=== PATIENT | male | born 1990 | race Caucasian/White ===

== ENCOUNTER 2019-09-16 20:46 | Emergency (ER) | payer MEDICAID ==
[~2019-09-16] VITALS: Ht 182.9 cm; Wt 105.2 kg
[2019-09-16 20:49] VITALS: BP 154/96
--- NOTE | 2019-09-16 20:55 | NUR ---
Pt was ambulatory from Triage to ER rm 19 w/o gait disturbances noted.
[2019-09-16] MEDS ORDERED: KETOROLAC 30 MG/1 ML ONE (21:05)
[2019-09-16] MEDS ORDERED: METHOCARBAMOL 750 MG TABLET ONE (21:05)
--- NOTE | 2019-09-16 21:19 | NUR ---
Pt provided po fluids.
[2019-09-16 21:21] LABS: BASOPHILS # (AUTO) 0.08 x10^3/uL (0-0.1); BASOPHILS % (AUTO) 1 % (0-1); EOSINOPHILS # (AUTO) 0.06 x10^3/uL (0-0.4); EOSINOPHILS % (AUTO) 1 % (1-7); LYMPHOCYTES # (AUTO) 2.23 x10^3/uL (1-3.4); LYMPHOCYTES % (AUTO) 20 % (22-44); MD NO; MEAN CORPUSCULAR HEMOGLOBIN 29.9 pg (27.5-34.5); MEAN CORPUSCULAR HGB CONC 34.1 g/dL (33.2-36.2); MEAN CORPUSCULAR VOLUME 87.7 fL (81-97); MEAN PLATELET VOLUME 7.8 fL (7.4-10.4); MONOCYTES # (AUTO) 1.15 x10^3/uL (0.2-0.8); MONOCYTES % (AUTO) 10 % (2-9); NEUTROPHILS # (AUTO) 7.87 x10^3/uL (1.8-6.8); NEUTROPHILS % (AUTO) 69 % (42-75); PLATELET COUNT 255 x10^3/uL (130-400); RED BLOOD COUNT 5.13 x10^6/uL (4.38-5.82); RED CELL DISTRIBUTION WIDTH 12.9 % (9.4-14.8)
[2019-09-16 21:29] LABS: ALBUMIN 4.2 g/dL (3.4-5.0); ANION GAP 11 mmol/L (5-15); CALCIUM 9.1 mg/dL (8.5-10.1); CHLORIDE 109 mmol/L (98-107); CREATININE 1.13 mg/dL (0.7-1.3)
[2019-09-16] MEDS ORDERED: METHOCARBAMOL 750 MG TABLET PO ONE (21:30)
[2019-09-16] MEDS ORDERED: KETOROLAC 30 MG/1 ML IM ONE (21:30)
[2019-09-16 22:21] LABS: MICROSCOPIC INDICATED
== END 2019-09-16 22:47 | disposition home or self-care (01) ==
LOC: ED 22:00
DX: S39.012A Strain of muscle, fascia and tendon of lower back, initial encounter (principal); F17.210 Nicotine dependence, cigarettes, uncomplicated; X58.XXXA Exposure to other specified factors, initial encounter; Y93.89 Activity, other specified; Y92.89 Other specified places as the place of occurrence of the external cause; Y99.8 Other external cause status
CPT/HCPCS: 36415; 80048; 81001; 82040; 85025; 96372; 99283; J1885